=== PATIENT | female | born 1995 | race Caucasian/White ===

== ENCOUNTER 2018-12-20 10:47 | Emergency (ER) | payer OTHER ==
[~2018-12-20] VITALS: Ht 177.8 cm; Wt 109.1 kg
[2018-12-20] MEDS ORDERED: SERT100T12 PO (10:53)
[2018-12-20 12:37] LABS: BASOPHILS % (AUTO) 0.5 % (0.0-2.0); EOSINOPHILS % (AUTO) 3.1 % (1.0-6.0); HEMATOCRIT 43.3 % (36-46); HEMOGLOBIN 14.4 g/dL (12.0-16.0); LYMPHOCYTES # (AUTO) 2.7 K/uL (1.0-4.8); LYMPHOCYTES % (AUTO) 17.2 % (22.0-44.0); MEAN CORPUSCULAR HEMOGLOBIN 28.1 pg (26.0-34.0); MEAN CORPUSCULAR HGB CONC 33.2 G/dL (31.0-37.0); MEAN CORPUSCULAR VOLUME 85 fL (80-100); MONOCYTES % (AUTO) 6.2 % (2.0-9.0); NEUTROPHILS # (AUTO) 11.3 K/uL (1.8-7.7); PLATELET COUNT (AUTO) 356 K/uL (150-450); RED BLOOD CELL COUNT(AUTO) 5.11 MIL/uL (4.00-5.20); RED CELL DISTRIBUTION WIDTH 13.9 % (11.5-14.5)
[2018-12-20 12:42] LABS: ANION GAP 9 mmol/L (8-16); CALCIUM, TOTAL 9.7 mg/dL (8.8-10.5); CARBON DIOXIDE 26 mmol/L (22-29); CHLORIDE 103 mmol/L (98-107); CREATININE 0.75 mg/dL (0.60-1.30); GLOMERULAR FILTR. RATE CALC > 60 mL/min (>60); GLUCOSE,RANDOM 98 mg/dL (70-110); POTASSIUM 3.9 mmol/L (3.5-5.1); SODIUM SERUM 138 mmol/L (136-145); UREA NITROGEN, BLOOD 11 mg/dL (7-18)
[2018-12-20 12:55] LABS: ALANINE AMINOTRANSFERASE 33 U/L (12-78); ALBUMIN 4.5 g/dL (3.4-5.0); ALKALINE PHOSPHATASE 82 U/L (46-116); ASPARTATE AMINOTRANSFERASE 21 U/L (15-37); BILIRUBIN,TOTAL 0.5 mg/dL (0.1-1.0); HCG,QUANTITATIVE < 1 mIU/mL (0-6); LIPASE 99 U/L (73-393)
[2018-12-20] MEDS ORDERED: SODIUM CHLORIDE 0.9% 1,000 ML IV ONE (15:15)
[2018-12-20] MEDS ORDERED: KETOROLAC TROMETHAMINE 30 MG/ML VIAL IVP ONE (15:15)
[2018-12-20] MEDS ORDERED: ONDANSETRON HCL 4 MG/2 ML VIAL IVP ONE (15:15)
[2018-12-20 17:12] LABS: APPEARANCE,URINE CLOUDY (CLEAR); BILIRUBIN,URINE NEGATIVE (NEGATIVE); GLUCOSE, URINE (UA) NEGATIVE (NEGATIVE); KETONES,URINE TRACE mg/dL (NEGATIVE); LEUKOCYTE ESTERASE ,URINE NEGATIVE (NEGATIVE); NITRATE,URINE POSITIVE (NEGATIVE); OCCULT BLOOD,URINE SMALL (NEGATIVE); PROTEIN,URINE NEGATIVE (NEGATIVE); UROBILINOGEN,URINE 0.2 mg/dL (<=1.0)
[2018-12-20 17:26] LABS: BACTERIA,URINE Many /HPF (None Seen); SQUAMOUS EPITHELIAL CELL,UR Moderate /LPF (None Seen); WBC,URINE 0-2 /HPF (0-5)
[2018-12-20] MEDS ORDERED: MORPHINE SULFATE 4 MG/ML SYRINGE IVP ONE (17:30)
[2018-12-20 19:09] VITALS: BP 125/71
== END 2018-12-20 20:00 | disposition home or self-care (01) ==
LOC: EMS 10:47
DX: N83.201 Unspecified ovarian cyst, right side (principal); N39.0 Urinary tract infection, site not specified
CPT/HCPCS: 36415; 74176; 76856; 80053; 81001; 83690; 84702; 85025; 87077; 87086; 87186; 96361; 96374; 96375; 99284; J1885; J2270; J2405; J7030